=== PATIENT | female | born 2000 | race Asian ===

== ENCOUNTER 2021-11-07 16:20 | Observation (INO) | payer OTHER ==
[~2021-11-07] VITALS: Ht 170.2 cm; Wt 127.5 kg
[2021-11-07] MEDS ORDERED: BETAMETH ACET/BETAMETH NA PH 30 MG/5 ML VIAL IM SCH (16:45)
[2021-11-07] MEDS ORDERED: cefTRIAXone 1,000 MG in LIDOCAINE MPF 1% 2.1 ML IM SCH (17:05)
[2021-11-07 17:27] LABS: BASOPHILS % (AUTO) 0.1 % (0.0-2.0); EOSINOPHILS # (AUTO) 0.1 K/uL (0-0.4); EOSINOPHILS % (AUTO) 0.7 % (0.0-4.0); HEMATOCRIT 36.6 % (36-48); HEMOGLOBIN 11.9 g/dL (12.0-16.0); LYMPHOCYTES # (AUTO) 2.2 K/uL (2.5-16.5); LYMPHOCYTES % (AUTO) 15.9 % (20.5-51.1); MEAN CORPUSCULAR HEMOGLOBIN 25 pg (27-31); MEAN CORPUSCULAR HGB CONC 33 g/dL (33-37); MEAN CORPUSCULAR VOLUME 78.1 fL (80-94); MONOCYTES % (AUTO) 6.9 % (1.7-9.3); NEUTROPHILS # (AUTO) 10.8 K/uL (1.8-7.7); NEUTROPHILS % (AUTO) 76.4 % (42.2-75.2); PLATELET COUNT (AUTO) 326 K/uL (140-450); RED BLOOD CELL COUNT(AUTO) 4.69 MIL/uL (4.20-5.40); RED CELL DISTRIBUTION WIDTH 14.3 % (11.6-13.7); WHITE BLOOD COUNT (AUTO) 14.1 K/uL (4.8-10.8)
[2021-11-07] MEDS ORDERED: PNV1TABL PO (17:34)
[2021-11-07 18:01] LABS: ALBUMIN 2.5 g/dL (3.4-5.0); ANION GAP 17.3 (8-16); CARBON DIOXIDE 20.6 mmol/L (21-32); CREATININE 0.8 mg/dL (0.6-1.3); POTASSIUM 3.9 mmol/L (3.5-5.1); TOTAL BILIRUBIN 0.2 mg/dL (0.0-1.0)
[2021-11-07 18:06] LABS: PROTHROMBIN TIME 9.4 secs (10.8-13.4)
[2021-11-07 18:08] VITALS: BP 131/76
[2021-11-09 00:45] LABS: URINE TOTAL PROTEIN 30.6 mg/dL (0-12)
== END 2021-11-07 20:05 | disposition home or self-care (01) ==
LOC: MLD 16:20
PROVIDERS: ADMIT Obstetrics & Gynecology; ATTEND Obstetrics & Gynecology
DX: O14.93 Unspecified pre-eclampsia, third trimester (principal); Z20.822 Contact with and (suspected) exposure to COVID-19; Z3A.36 36 weeks gestation of pregnancy
CPT/HCPCS: 36415; 76805; 80053; 82570; 84550; 85025; 85384; 85610; 85730; 86886; 86900; 86901; 87426; 96372; G0378; G0379; J0696; J0702; J2001; Q0092; 59025; 81000

== ENCOUNTER 2021-11-08 18:48 | Observation (INO) | payer OTHER ==
[~2021-11-08] VITALS: Ht 170.2 cm; Wt 127.5 kg
[~2021-11-08 18:48] MED LIST: PNV1TABL PO
[2021-11-08] MEDS ORDERED: BETAMETH ACET/BETAMETH NA PH 30 MG/5 ML VIAL IM SCH (19:15)
[2021-11-08 20:03] VITALS: BP 115/62
== END 2021-11-08 19:40 | disposition home or self-care (01) ==
LOC: MLD 18:48
PROVIDERS: ADMIT Obstetrics & Gynecology; ATTEND Obstetrics & Gynecology
DX: Z34.83 Encounter for supervision of other normal pregnancy, third trimester (principal); Z3A.36 36 weeks gestation of pregnancy
CPT/HCPCS: 96372; G0378; G0379; J0702